=== PATIENT | female | born 1970 | race American Indian/Alaskan Native ===

== ENCOUNTER 2019-12-12 11:22 | Emergency (ER) | payer MEDICARE, OTHER ==
[2019-12-12 11:30] VITALS: BP 188/121
--- NOTE | 2019-12-12 11:56 | Event Note ---
ED Screening Note Date of service: 12/12/19 Time: 11:53 ED Screening Note: 49 y/o female comes in for right knee injury and pain. Fell out of a car 3 days ago. This initial assessment/diagnostic orders/clinical plan/treatment(s) is/are subject to change based on patients health status, clinical progression and re- assessment by fellow clinical providers in the ED. Further treatment and workup at subsequent clinical providers discretion. Patient/guardian urged not to elope from the ED as their condition may be serious if not clinically assessed and managed. Initial orders include:
--- NOTE | 2019-12-12 12:44 | XRay Report ---
RIGHT KNEE 3 VIEWS INDICATION / CLINICAL INFORMATION: injury to rt knee. COMPARISON: None available. FINDINGS: Mild degenerative change in the medial and patellofemoral compartments. No other significant skeletal abnormality Signer Name: Chris Figueroa MD FACR Signed: 12/12/2019 12:39 PM Workstation Name: [id number]
--- NOTE | 2019-12-12 12:58 | Emergency Department Report ---
ED Lower Extremity HPI - General Chief Complaint: Extremity Injury, Lower Stated Complaint: KNEE PAIN Time Seen by Provider: 12/12/19 12:47 Source: patient Mode of arrival: Ambulatory Limitations: No Limitations - History of Present Illness Initial Comments: 49-year-old morbidly obese Afro-[place] female status slip and fall while trying to get into a vehicle 1 day ago. States worsening into the vehicle she lost her balance and fell forward causing her right knee to twist causing a popping and burning sensation. Leg did not strike the ground of any other hard surface at any point in time. She reports no pre-existing issues with her right knee. There is no numbness or tingling. No fever chills or sweats. No paresthesia. MD Complaint: knee injury - Related Data Previous Rx's Medication Instructions Recorded Last Taken Type HYDROcodone/APAP 5-325 [[place] 1 each PO Q6HR PRN #14 tablet 09/02/13 Unknown Rx 5/325 mg] metroNIDAZOLE [Flagyl] 500 mg PO BID #14 tablet 09/02/13 Unknown Rx Ketorolac [Toradol] 10 mg PO Q6H PRN #14 tablet 12/12/19 Unknown Rx Allergies Allergy/AdvReac Type Severity Reaction Status Date / Time No Known Allergies Allergy Verified 09/02/13 13:07 ED Review of Systems ROS: Stated complaint: KNEE PAIN Other details as noted in HPI Comment: All other systems reviewed and negative ED Past Medical Hx - Past Medical History Previous Medical History?: Yes Hx Hypertension: Yes Hx HIV: Yes Additional medical history: anemia - Surgical History Past Surgical History?: Yes Additional Surgical History: lap band, breast reduction - Social History Smoking Status: Unknown if ever smoked Substance Use Type: Alcohol, Marijuana - Medications Home Medications: Home Medications Medication Instructions Recorded Confirmed Last Taken Type HYDROcodone/APAP 5-325 [[place] 1 each PO Q6HR PRN #14 tablet 09/02/13 Unknown Rx 5/325 mg] metroNIDAZOLE [Flagyl] 500 mg PO BID #14 tablet 09/02/13 Unknown Rx Ketorolac [Toradol] 10 mg PO Q6H PRN #14 tablet 12/12/19 Unknown Rx ED Physical Exam - General Limitations: No Limitations General appearance: alert, in no apparent distress - Head Head exam: Present: atraumatic, normocephalic - Eye Eye exam: Present: normal appearance, PERRL, EOMI - ENT ENT exam: Present: mucous membranes moist - Neck Neck exam: Present: normal inspection - Respiratory Respiratory exam: Present: normal lung sounds bilaterally. Absent: respiratory distress - Cardiovascular Cardiovascular Exam: Present: regular rate, normal rhythm. Absent: systolic murmur, diastolic murmur, rubs, gallop - GI/Abdominal GI/Abdominal exam: Present: soft, normal bowel sounds - Extremities Exam Extremities exam: Present: normal inspection - Expanded Lower Extremity Exam Right Knee exam: Present: tenderness, swelling, effusion, pain w/ prona tion/supination, pain/laxity with valgus. Absent: laceration, ecchymosis, crepidus, dislocation, erythema Lower Leg exam: Present: normal inspection Ankle exam: Present: normal inspection Foot/Toe exam: Present: normal inspection Neuro vascular tendon exam: Present: no vascular compromise - Back Exam Back exam: Present: normal inspection - Neurological Exam Neurological exam: Present: alert, oriented X3 - Psychiatric Psychiatric exam: Present: normal affect, normal mood - Skin Skin exam: Present: warm, dry, intact, normal color. Absent: rash ED Course Vital Signs 12/12/19 11:27 Temperature 98.9 F Pulse Rate 114 H Respiratory 16 Rate Blood Pressure 188/121 [Left] O2 Sat by Pulse 98 Oximetry Critical care attestation.: If time is entered above; I have spent that time in minutes in the direct care of this critically ill patient, excluding procedure time. ED Disposition Clinical Impression: Internal derangement of knee Disposition: DC-01 TO HOME OR SELFCARE Is pt being admited?: No Does the pt Need Aspirin: No Condition: Stable Instructions: Knee Pain (ED), Knee Immobilizer (ED), Crutch Instructions (ED) Prescriptions: Ketorolac [Toradol] 10 mg PO Q6H PRN #14 tablet PRN Reason: Pain Referrals: JACI UREÑA MD [Staff Physician] - 3-5 Days [facility] [Provider Group] - 3-5 Days
[2019-12-12] MEDS ORDERED: HYDROcodone/ACETAMINOPHEN 5-325 MG TAB PO STA (13:13)
== END 2019-12-12 13:22 | disposition home or self-care (01) ==
LOC: ED 11:22
DX: M23.8X1 Other internal derangements of right knee (principal); I10 Essential (primary) hypertension; F12.10 Cannabis abuse, uncomplicated; Z21 Asymptomatic human immunodeficiency virus [HIV] infection status; Z79.899 Other long term (current) drug therapy
CPT/HCPCS: 99283

== ENCOUNTER 2020-03-02 19:16 | Emergency (ER) | payer MEDICARE ==
[2020-03-02 19:58] VITALS: BP 151/99
[2020-03-02] MEDS ORDERED: dexAMETHasone 20 MG/5 ML VIAL IM ONE (22:38)
[2020-03-02] MEDS ORDERED: KETOROLAC 30 MG/1 ML INJ IM ONE (22:38)
--- NOTE | 2020-03-02 23:25 | Emergency Department Report ---
ED Back Pain/Injury HPI - General Chief Complaint: Back Pain/Injury Stated Complaint: MIDDLE BACK PAIN Time Seen by Provider: 03/02/20 22:08 Source: patient Limitations: No Limitations - History of Present Illness Initial Comments: Patient 50-year-old -Malian female with a history of obesity, low back pain ,and osteoarthritis. Who presents for exacerbation of low back pain. Patient denies fall ,injury or trauma. Pain today described at 4/10 aching radiated to right lower extremity..'s of tingling and burning. There is no loss or decrease in bowel or bladder function. Patient remains amatory to baseline per patient. Patient states usual regimen is NSAIDs moist heat and rest. Current symptoms are exacerbated by bending moving and twisting. Symptoms are relieved by offloading and rest. MD Complaint: back pain Onset/Timin -: days(s) Similar Symptoms Previously: Yes Place: home Radiation: right leg Severity: moderate Severity scale (0 -10): 5 Quality: aching Consistency: constant Worsens With: movement Context: turning/twisting, bending Associated Symptoms: denies: weakness, difficulty urinating, incontinence, constipation - Related Data Previous Rx's Medication Instructions Recorded Last Taken Type HYDROcodone/APAP 5-325 [[place] 1 each PO Q6HR PRN #14 tablet 09/02/13 Unknown Rx 5/325 mg] metroNIDAZOLE [Flagyl] 500 mg PO BID #14 tablet 09/02/13 Unknown Rx Ketorolac [Toradol] 10 mg PO Q6H PRN #14 tablet 12/12/19 Unknown Rx Cyclobenzaprine [Flexeril] 10 mg PO TID PRN #30 tablet 03/02/20 Unknown Rx Diclofenac Sodium 50 mg PO Q8H PRN #30 tablet. 03/02/20 Unknown Rx predniSONE [Deltasone] 40 mg PO QDAY 5 Days #10 tab 03/02/20 Unknown Rx Allergies Allergy/AdvReac Type Severity Reaction Status Date / Time No Known Allergies Allergy Verified 09/02/13 13:07 ED Review of Systems ROS: Stated complaint: MIDDLE BACK PAIN Other details as noted in HPI Constitutional: denies: chills, fever Eyes: denies: eye pain, eye discharge, vision change ENT: denies: ear pain, throat pain Respiratory: denies: cough, shortness of breath, wheezing Cardiovascular: denies: chest pain, palpitations Endocrine: no symptoms reported Gastrointestinal: denies: abdominal pain, nausea, diarrhea Genitourinary: denies: urgency, dysuria, discharge Musculoskeletal: back pain, arthralgia, myalgia Skin: denies: rash, lesions Neurological: as per HPI Psychiatric: denies: anxiety, depression Hematological/Lymphatic: denies: easy bleeding, easy bruising ED Past Medical Hx - Past Medical History Previous Medical History?: Yes Hx Hypertension: Yes Hx HIV: Yes Additional medical history: anemia, Peripheral Neuropathy, Herniated discs. Chronic Back Pain. Chronic bilateral knee pain - Surgical History Past Surgical History?: Yes Additional Surgical History: lap band, breast reduction, Uterine Embolization, - Social History Smoking Status: Never Smoker Substance Use Type: None - Medications Home Medications: Home Medications Medication Instructions Recorded Confirmed Last Taken Type HYDROcodone/APAP 5-325 [[place] 1 each PO Q6HR PRN #14 tablet 09/02/13 Unknown Rx 5/325 mg] metroNIDAZOLE [Flagyl] 500 mg PO BID #14 tablet 09/02/13 Unknown Rx Ketorolac [Toradol] 10 mg PO Q6H PRN #14 tablet 12/12/19 Unknown Rx Cyclobenzaprine [Flexeril] 10 mg PO TID PRN #30 tablet 03/02/20 Unknown Rx Diclofenac Sodium 50 mg PO Q8H PRN #30 tablet. 03/02/20 Unknown Rx predniSONE [Deltasone] 40 mg PO QDAY 5 Days #10 tab 03/02/20 Unknown Rx ED Physical Exam - General Limitations: No Limitations General appearance: alert, in no apparent distress - Head Head exam: Present: atraumatic, normocephalic - Eye Eye exam: Present: normal appearance - ENT ENT exam: Present: mucous membranes moist - Neck Neck exam: Present: normal inspection, full ROM. Absent: tenderness - Respiratory Respiratory exam: Present: normal lung sounds bilaterally. Absent: respiratory distress, wheezes, stridor - Cardiovascular Cardiovascular Exam: Present: regular rate, normal rhythm, normal heart sounds. Absent: systolic murmur, diastolic murmur, rubs, gallop - GI/Abdominal GI/Abdominal exam: Present: soft, normal bowel sounds. Absent: tenderness - Extremities Exam Extremities exam: Present: normal inspection, full ROM, normal capillary refill. Absent: tenderness - Back Exam Back exam: Present: normal inspection, full ROM, muscle spasm, paraspinal tenderness. Absent: tenderness, CVA tenderness (R), CVA tenderness (L), vertebral tenderness, rash noted - Expanded Back Exam Expanded Back exam: Absent: saddle anesthesia Back exam: Positive Straight Leg Raise: Right - Neurological Exam Neurological exam: Present: alert, oriented X3, CN II-XII intact, normal gait, reflexes normal. Absent: motor sensory deficit - Expanded Neurological Exam Expanded Patient oriented to: Present: person, place, time Speech: Present: fluid speech Motor strength exam: RUE: 5, LUE: 5, RLE: 5, LLE: 5 DTR: ankle (R): 2+, ankle (L): 2+ Best Eye Response (Bath): (4) open spontaneously Best Motor Response (Sheri): (6) obeys commands Best Verbal Response ([place]ath): (5) oriented Sheri Total: 15 - Psychiatric Psychiatric exam: Present: normal affect, normal mood - Skin Skin exam: Present: warm, dry, intact, normal color. Absent: rash ED Course Vital Signs 03/02/20 19:55 Temperature 98.1 F Pulse Rate 84 Respiratory 18 Rate Blood Pressure 151/99 O2 Sat by Pulse 97 Oximetry ED Medical Decision Making - Medical Decision Making Symptoms improved to 07/28. Plan DC to home with prescription for NSAIDs analgesic balm muscle relaxants patient will use moist heat therapy as directed. Patient will follow-up with Ortho in 2 to 3 days. Patient verbalizes agreement and understanding with discharge plan . Patient currently amatory with steady gait in no acute distress ,patient DC'd home in stable condition at this time Critical care attestation.: If time is entered above; I have spent that time in minutes in the direct care of this critically ill patient, excluding procedure time. ED Disposition Clinical Impression: Repetitive strain injury of lower back Qualifiers: Encounter type: initial encounter Qualified Code(s): S39.012A - Strain of muscle, fascia and tendon of lower back, initial encounter; X50.3XXA - Overexertion from repetitive movements, initial encounter Disposition: DC-01 TO HOME OR SELFCARE Is pt being admited?: No Does the pt Need Aspirin: No Condition: Stable Instructions: Low Back Strain (ED), Core Strengthening Exercises (GEN) Prescriptions: predniSONE [Deltasone] 40 mg PO QDAY 5 Days #10 tab Diclofenac Sodium 50 mg PO Q8H PRN #30 tablet. PRN Reason: pain Cyclobenzaprine [Flexeril] 10 mg PO TID PRN #30 tablet PRN Reason: Muscle Spasm Referrals: BANDAR CHAUHAN MD [Primary Care Provider] - 3-5 Days Forms: Work/School Release Form(ED) Time of Disposition: 23:31
== END 2020-03-03 00:10 | disposition home or self-care (01) ==
LOC: ED 19:16
DX: S39.012A Strain of muscle, fascia and tendon of lower back, initial encounter (principal); E66.9 Obesity, unspecified; M19.90 Unspecified osteoarthritis, unspecified site; I10 Essential (primary) hypertension; D64.9 Anemia, unspecified; Z68.41 Body mass index [BMI] 40.0-44.9, adult; Z21 Asymptomatic human immunodeficiency virus [HIV] infection status; Z79.899 Other long term (current) drug therapy; Z98.890 Other specified postprocedural states; X58.XXXA Exposure to other specified factors, initial encounter; Y93.89 Activity, other specified; Y92.009 Unspecified place in unspecified non-institutional (private) residence as the place of occurrence of the external cause; Y99.8 Other external cause status
CPT/HCPCS: 96372; 99283; J1100; J1885

== ENCOUNTER 2020-03-22 11:51 | Emergency (ER) | payer MEDICARE ==
[2020-03-22 11:57] VITALS: BP 139/94
--- NOTE | 2020-03-22 12:42 | XRay Report ---
XR foot 3+V RT INDICATION / CLINICAL INFORMATION: Trauma, pain and swelling. COMPARISON: None available. FINDINGS: No acute fracture. Normal alignment. Joint spaces are preserved. No destructive osseous lesion or s uspicious periosteal reaction. Impression: 1.No acute fracture. Signer Name: Christian Hernandez MD Signed: 03/22/2020 12:37 PM Workstation Name: [id number]
[2020-03-22] MEDS ORDERED: HYDROcodone/ACETAMINOPHEN 5-325 MG TAB PO ONE (13:37)
[2020-03-22] MEDS ORDERED: KETOROLAC 30 MG/1 ML INJ IM ONE (13:37)
--- NOTE | 2020-03-22 13:45 | Emergency Department Report ---
ED General Adult HPI - General Chief complaint: Extremity Injury, Lower Stated complaint: RT FOOT SWOLLEN Time Seen by Provider: 03/22/20 13:34 Source: patient Mode of arrival: Wheelchair Limitations: No Limitations - History of Present Illness Initial comments: 50-year-old -Armenian female patient presents with complaints of sudden onset of right foot pain upon waking this morning. She denies any injury or history of gout. She rates her current pain as a 10/10 in severity and states it worsens with touching and ambulation. She has history of HIV and states she is compliant with her antiretroviral medications. She denies any fever/chill s/sweats, numbness/tingling/weakness in her foot, or inability to move her foot. She denies trying any [id number]-weauhfc medicine for her symptoms. - Related Data Previous Rx's Medication Instructions Recorded Last Taken Type HYDROcodone/APAP 5-325 [[place] 1 each PO Q6HR PRN #14 tablet 09/02/13 Unknown Rx 5/325 mg] metroNIDAZOLE [Flagyl] 500 mg PO BID #14 tablet 09/02/13 Unknown Rx Ketorolac [Toradol] 10 mg PO Q6H PRN #14 tablet 12/12/19 Unknown Rx Cyclobenzaprine [Flexeril] 10 mg PO TID PRN #30 tablet 03/02/20 Unknown Rx Diclofenac Sodium 50 mg PO Q8H PRN #30 tablet. 03/02/20 Unknown Rx predniSONE [Deltasone] 40 mg PO QDAY 5 Days #10 tab 03/02/20 Unknown Rx Acetaminophen/Codeine [Tylenol 1 tab PO Q6H PRN #10 tab 03/22/20 Unknown Rx /Codeine # 3 tab] Indomethacin 50 mg PO Q8H 7 Days #21 capsule 03/22/20 Unknown Rx Allergies Allergy/AdvReac Type Severity Reaction Status Date / Time No Known Allergies Allergy Verified 09/02/13 13:07 ED Review of Systems ROS: Stated complaint: RT FOOT SWOLLEN Other details as noted in HPI Constitutional: denies: chills, fever, malaise, weakness Respiratory: denies: shortness of breath Cardiovascular: denies: chest pain Endocrine: denies: excessive sweating Gastrointestinal: denies: abdominal pain, nausea Genitourinary: denies: urgency, dysuria, hematuria Musculoskeletal: joint swelling, arthralgia Skin: denies: rash, lesions, change in color Neurological: denies: headache, numbness, paresthesias Hematological/Lymphatic: denies: easy bruising, swollen glands ED Past Medical Hx - Past Medical History Previous Medical History?: Yes Hx Hypertension: Yes Hx HIV: Yes Additional medical history: anemia, Peripheral Neuropathy, Herniated discs. Chronic Back Pain. Chronic bilateral knee pain - Surgical History Past Surgical History?: Yes Additional Surgical History: lap band, breast reduction, Uterine Embolization, - Social History Smoking Status: Never Smoker Substance Use Type: None - Medications Home Medications: Home Medications Medication Instructions Recorded Confirmed Last Taken Type HYDROcodone/APAP 5-325 [[place] 1 each PO Q6HR PRN #14 tablet 09/02/13 Unknown Rx 5/325 mg] metroNIDAZOLE [Flagyl] 500 mg PO BID #14 tablet 09/02/13 Unknown Rx Ketorolac [Toradol] 10 mg PO Q6H PRN #14 tablet 12/12/19 Unknown Rx Cyclobenzaprine [Flexeril] 10 mg PO TID PRN #30 tablet 03/02/20 Unknown Rx Diclofenac Sodium 50 mg PO Q8H PRN #30 tablet. 03/02/20 Unknown Rx predniSONE [Deltasone] 40 mg PO QDAY 5 Days #10 tab 03/02/20 Unknown Rx Acetaminophen/Codeine [Tylenol 1 tab PO Q6H PRN #10 tab 03/22/20 Unknown Rx /Codeine # 3 tab] Indomethacin 50 mg PO Q8H 7 Days #21 capsule 03/22/20 Unknown Rx ED Physical Exam - General Limitations: No Limitations General appearance: alert, in no apparent distress, obese - Head Head exam: Present: atraumatic, normocephalic - Eye Eye exam: Present: normal appearance. Absent: scleral icterus - Neck Neck exam: Present: normal inspection - Respiratory Respiratory exam: Present: normal lung sounds bilaterally. Absent: respiratory distress - Cardiovascular Cardiovascular Exam: Present: regular rate, normal rhythm, normal heart sounds - Extremities Exam Extremities exam: Present: full ROM - Expanded Lower Extremity Exam Right Ankle exam: Present: full ROM, tenderness (Lateral). Absent: swelling Foot/Toe exam: Present: full ROM, tenderness, swelling (Mild with mild overlying redness and warmth to touch; no induration noted). Absent: abrasion, laceration, ecchymosis, deformity, dislocation, puncture wound Neuro vascular tendon exam: Absent: pulse deficit, motor deficit, sensory deficit, extremity cold to touch, pallor - Back Exam Back exam: Present: normal inspection - Neurological Exam Neurological exam: Present: alert, oriented X3 - Psychiatric Psychiatric exam: Present: normal affect, normal mood - Skin Skin exam: Present: warm, dry, intact. Absent: rash ED Course Vital Signs 03/22/20 03/22/20 03/22/20 11:56 13:51 13:52 Temperature Pulse Rate 101 H Respiratory 16 18 18 Rate Blood Pressure 139/94 O2 Sat by Pulse 94 Oximetry 03/22/20 14:43 Temperature 99.4 F Pulse Rate 87 Respiratory 16 Rate Blood Pressure O2 Sat by Pulse 96 Oximetry ED Medical Decision Making - Lab Data Result diagrams: 03/22/20 13:59 03/22/20 13:59 Lab Results 03/22/20 03/22/20 Range/Units 13:59 13:59 WBC 4.8 (4.5-11.0) K/mm3 RBC 3.11 L (3.65-5.03) M/mm3 Hgb 9.6 L (10.1-14.3) gm/dl Hct 28.2 L (30.3-42.9) % MCV 91 (79-97) fl MCH 31 (28-32) pg MCHC 34 (30-34) % RDW 13.6 (13.2-15.2) % Plt Count 264 (140-440) K/mm3 Lymph % (Auto) 38.5 H (13.4-35.0) % Grady % (Auto) 9.8 H (0.0-7.3) % Eos % (Auto) 0.7 (0.0-4.3) % Baso % (Auto) 0.1 (0.0-1.8) % Lymph # (Auto) 1.8 (1.2-5.4) K/mm3 Grady # (Auto) 0.5 (0.0-0.8) K/mm3 Eos # (Auto) 0.0 (0.0-0.4) K/mm3 Baso # (Auto) 0.0 (0.0-0.1) K/mm3 Seg Neutrophils % 50.9 (40.0-70.0) % Seg Neutrophils # 2.4 (1.8-7.7) K/mm3 Sodium 137 (137-145) mmol/L Potassium 3.3 L (3.6-5.0) mmol/L Chloride 104.5 (98-107) mmol/L Carbon Dioxide 25 (22-30) mmol/L Anion Gap 11 mmol/L BUN 12 (7-17) mg/dL Creatinine 0.8 (0.6-1.2) mg/dL Estimated GFR > 60 ml/min BUN/Creatinine Ratio 15 % Glucose 78 (65-100) mg/dL Uric Acid 13.4 H (3.5-7.6) mg/dL Calcium 9.0 (8.4-10.2) mg/dL - Radiology Data Radiology results: report reviewed XR foot 3+V RT INDICATION / CLINICAL INFORMATION: Trauma, pain and swelling. COMPARISON: None available. FINDINGS: No acute fracture. Normal alignment. Joint spaces are preserved. No destructive osseous lesion or suspicious periosteal reaction. Impression: 1.No acute fracture. - Medical Decision Making 50-year-old -Armenian female patient presents with complaints of sudden onset of right foot pain upon waking this morning. She denies any injury or history of gout. She rates her current pain as a 10/10 in severity and states it worsens with touching and ambulation. She has history of HIV and states she is compliant with her antiretroviral medications. She denies any fever/chills/sweats, numbness/tingling/weakness in her foot, or inability to move her foot. She denies trying any wjrr-vtp-apjnvic medicine for her symptoms. Erythema and swelling with warmth noted to right foot on exam. CBC is normal. X-ray is negative for acute abnormality. Uric acid is elevated at 13.4. Exam and uric acid level is consistent with gouty arthritis. Patient given Toradol here in ED and will discharge home with indomethacin. Patient to follow-up with primary care within 3 to 5 days. Her vitals are normal, she is well-appearing, and she is stable for discharge home. Strict return precautions were discussed in detail with patient who verbalizes understanding. Critical care attestation.: If time is entered above; I have spent that time in minutes in the direct care of this critically ill patient, excluding procedure time. ED Disposition Clinical Impression: Acute gout of right foot Qualifiers: Gout etiology: idiopathic Qualified Code(s): M10.071 - Idiopathic gout, right ankle and foot Disposition: - TO HOME OR SELFCARE Is pt being admited?: No Condition: Stable Instructions: Acute Gouty Arthritis (ED) Prescriptions: Indomethacin 50 mg PO Q8H 7 Days #21 capsule Acetaminophen/Codeine [Tylenol /Codeine # 3 tab] 1 tab PO Q6H PRN #10 tab PRN Reason: Pain , Severe (7-10) Referrals: BANDAR CHAUHAN MD [Primary Care Provider] - 3-5 Days
[2020-03-22 14:27] LABS: Basophils % (Auto) 0.1 % (0.0-1.8); Eosinophils % (Auto) 0.7 % (0.0-4.3); Hematocrit 28.2 % (30.3-42.9); Hemoglobin 9.6 gm/dl (10.1-14.3); Lymphocytes # (Auto) 1.8 K/mm3 (1.2-5.4); Lymphocytes % (Auto) 38.5 % (13.4-35.0); Mean Corpuscular HGB Conc 34 % (30-34); Mean Corpuscular Volume 91 fl (79-97); Monocytes # (Auto) 0.5 K/mm3 (0.0-0.8); Monocytes % (Auto) 9.8 % (0.0-7.3); Platelet Count 264 K/mm3 (140-440); Red Blood Count 3.11 M/mm3 (3.65-5.03); Red Cell Distribution Width 13.6 % (13.2-15.2)
[2020-03-22 14:58] LABS: BUN/Creatinine Ratio 15; Blood Urea Nitrogen 12 mg/dL (7-17); Hemolysis Index 5; Uric Acid 13.4 mg/dL (3.5-7.6)
[2020-03-22] MEDS ORDERED: DEXAMETHASONE 4 MG TAB PO ONE (15:18)
== END 2020-03-22 15:49 | disposition home or self-care (01) ==
LOC: ED 11:51
DX: M10.9 Gout, unspecified (principal)
CPT/HCPCS: 36415; 73630; 80048; 84550; 85025; 96372; 99283; J1885; J8540

== ENCOUNTER 2020-05-11 14:14 | Observation (INO) | payer MEDICARE, OTHER ==
--- NOTE | 2020-05-11 14:41 | Event Note ---
ED Screening Note Date of service: 05/11/20 Time: 14:41 ED Screening Note: Patient complains of painful urination, hematuria, urinary frequency, and bilateral back pain x1 week History of HIV This initial assessment/diagnostic orders/clinical plan/treatment(s) is/are subject to change based on patients health status, clinical progression and re- assessment by fellow clinical providers in the ED. Further treatment and workup at subsequent clinical providers discretion. Patient/guardian urged not to elope from the ED as their condition may be serious if not clinically assessed and managed. Initial orders include: Labs
[2020-05-11 15:35] LABS: Basophils % (Auto) 0.2 % (0.0-1.8); Eosinophils # (Auto) 0.1 K/mm3 (0.0-0.4); Eosinophils % (Auto) 1.5 % (0.0-4.3); Hematocrit 30.2 % (30.3-42.9); Hemoglobin 10.3 gm/dl (10.1-14.3); Lymphocytes # (Auto) 2.2 K/mm3 (1.2-5.4); Lymphocytes % (Auto) 32.9 % (13.4-35.0); Mean Corpuscular HGB Conc 34 % (30-34); Mean Corpuscular Volume 90 fl (79-97); Monocytes # (Auto) 0.7 K/mm3 (0.0-0.8); Monocytes % (Auto) 9.8 % (0.0-7.3); Platelet Count 327 K/mm3 (140-440); Red Blood Count 3.35 M/mm3 (3.65-5.03); Red Cell Distribution Width 14.4 % (13.2-15.2)
[2020-05-11 15:52] LABS: Albumin 3.4 g/dL (3.9-5); Calcium 9.5 mg/dL (8.4-10.2)
[2020-05-11 19:09] LABS: Bacteria,Urine 2+ /HPF (Negative); Bilirubin,Urine NEG (Negative); Blood,Urine NEG (Negative); Color,Urine Yellow (Yellow); Hyaline Casts,Urine 5 /LPF; Mucus,Urine FEW /HPF; Urobilinogen,Urine < 2.0 mg/dL (<2.0)
--- NOTE | 2020-05-11 19:09 | Emergency Department Report ---
ED Abdominal Pain HPI - General Chief Complaint: Urogenital-Female Stated Complaint: BLOOD IN URINE/BACK PAIN Time Seen by Provider: 05/11/20 14:40 Source: patient Mode of arrival: Ambulatory Limitations: No Limitations - History of Present Illness Initial Comments: 50-year-old female General aches. Ports no fever, chills, sweats, no chest pain no palpitation, no nausea, no vomiting past medical history of anemia, hypertension, HIV presents emergency department complaining of bloody urine flank pain and dysuria MD Complaint: flank pain -: Gradual Location: suprapubic, L flank Radiation: L flank Migration to: suprapubic, L flank Severity: mild, moderate Severity scale (0 -10): 6 Quality: aching, sharp, dull Consistency: constant Improves With: nothing Worsens With: nothing Associated Symptoms: denies: vomiting, diarrhea, hematemesis, hematochezia, hematuria, anorexia - Related Data Previous Rx's Medication Instructions Recorded Last Taken Type HYDROcodone/APAP 5-325 [[place] 1 each PO Q6HR PRN #14 tablet 09/02/13 Unknown Rx 5/325 mg] metroNIDAZOLE [Flagyl] 500 mg PO BID #14 tablet 09/02/13 Unknown Rx Ketorolac [Toradol] 10 mg PO Q6H PRN #14 tablet 12/12/19 Unknown Rx Cyclobenzaprine [Flexeril] 10 mg PO TID PRN #30 tablet 03/02/20 Unknown Rx Diclofenac Sodium 50 mg PO Q8H PRN #30 tablet. 03/02/20 Unknown Rx predniSONE [Deltasone] 40 mg PO QDAY 5 Days #10 tab 03/02/20 Unknown Rx Acetaminophen/Codeine [Tylenol 1 tab PO Q6H PRN #10 tab 03/22/20 Unknown Rx /Codeine # 3 tab] Indomethacin 50 mg PO Q8H 7 Days #21 capsule 03/22/20 Unknown Rx Allergies Allergy/AdvReac Type Severity Reaction Status Date / Time No Known Allergies Allergy Verified 09/02/13 13:07 ED Review of Systems ROS: Stated complaint: BLOOD IN URINE/BACK PAIN Other details as noted in HPI Comment: All other systems reviewed and negative ED Past Medical Hx - Past Medical History Previous Medical History?: Yes Hx Hypertension: Yes Hx HIV: Yes Additional medical history: anemia, Peripheral Neuropathy, Herniated discs. Chronic Back Pain. Chronic bilateral knee pain - Surgical History Past Surgical History?: Yes Additional Surgical History: lap band, breast reduction, Uterine Embolization, . gastric sleeve - Social History Smoking Status: Never Smoker Substance Use Type: None - Medications Home Medications: Home Medications Medication Instructions Recorded Confirmed Last Taken Type HYDROcodone/APAP 5-325 [[place] 1 each PO Q6HR PRN #14 tablet 09/02/13 Unknown Rx 5/325 mg] metroNIDAZOLE [Flagyl] 500 mg PO BID #14 tablet 09/02/13 Unknown Rx Ketorolac [Toradol] 10 mg PO Q6H PRN #14 tablet 12/12/19 Unknown Rx Cyclobenzaprine [Flexeril] 10 mg PO TID PRN #30 tablet 03/02/20 Unknown Rx Diclofenac Sodium 50 mg PO Q8H PRN #30 tablet. 03/02/20 Unknown Rx predniSONE [Deltasone] 40 mg PO QDAY 5 Days #10 tab 03/02/20 Unknown Rx Acetaminophen/Codeine [Tylenol 1 tab PO Q6H PRN #10 tab 03/22/20 Unknown Rx /Codeine # 3 tab] Indomethacin 50 mg PO Q8H 7 Days #21 capsule 03/22/20 Unknown Rx ED Physical Exam - General Limitations: No Limitations General appearance: alert, in no apparent distress - Head Head exam: Present: atraumatic, normocephalic - Eye Eye exam: Present: normal appearance, PERRL - ENT ENT exam: Present: normal exam, mucous membranes moist, TM's normal bilaterally - Neck Neck exam: Present: normal inspection, full ROM - Respiratory Respiratory exam: Present: normal lung sounds bilaterally. Absent: respiratory distress, wheezes, rales, chest wall tenderness, accessory muscle use - Cardiovascular Cardiovascular Exam: Present: regular rate, normal rhythm. Absent: systolic murmur, diastolic murmur, rubs, gallop - GI/Abdominal GI/Abdominal exam: Present: soft, normal bowel sounds - Extremities Exam Extremities exam: Present: normal inspection, normal capillary refill - Back Exam Back exam: Present: normal inspection, full ROM, CVA tenderness (L). Absent: CVA tenderness (R) - Neurological Exam Neurological exam: Present: alert, oriented X3, CN II-XII intact - Psychiatric Psychiatric exam: Present: normal affect, normal mood - Skin Skin exam: Present: warm, dry, intact, normal color. Absent: rash ED Course Vital Signs 05/11/20 14:36 Temperature 99 F Pulse Rate 83 Respiratory 18 Rate Blood Pressure 136/89 [Right] O2 Sat by Pulse 99 Oximetry ED Medical Decision Making - Lab Data Result diagrams: 05/11/20 15:18 05/11/20 15:18 Lab Results 05/11/20 05/11/20 05/11/20 Range/Units 15:18 15:18 18:03 WBC 6.7 (4.5-11.0) K/mm3 RBC 3.35 L (3.65-5.03) M/mm3 Hgb 10.3 (10.1-14.3) gm/dl Hct 30.2 L (30.3-42.9) % MCV 90 (79-97) fl MCH 31 (28-32) pg MCHC 34 (30-34) % RDW 14.4 (13.2-15.2) % Plt Count 327 (140-440) K/mm3 Lymph % (Auto) 32.9 (13.4-35.0) % Gaines % (Auto) 9.8 H (0.0-7.3) % Eos % (Auto) 1.5 (0.0-4.3) % Baso % (Auto) 0.2 (0.0-1.8) % Lymph # (Auto) 2.2 (1.2-5.4) K/mm3 Gaines # (Auto) 0.7 (0.0-0.8) K/mm3 Eos # (Auto) 0.1 (0.0-0.4) K/mm3 Baso # (Auto) 0.0 (0.0-0.1) K/mm3 Seg Neutrophils % 55.6 (40.0-70.0) % Seg Neutrophils # 3.7 (1.8-7.7) K/mm3 Sodium 130 L (137-145) mmol/L Potassium 4.3 (3.6-5.0) mmol/L Chloride 104.9 (98-107) mmol/L Carbon Dioxide 14 L (22-30) mmol/L Anion Gap 15 mmol/L BUN 49 H (7-17) mg/dL Creatinine 2.2 H (0.6-1.2) mg/dL Estimated GFR 29 ml/min BUN/Creatinine Ratio 22 % Glucose 81 (65-100) mg/dL Calcium 9.5 (8.4-10.2) mg/dL Total Bilirubin 0.40 (0.1-1.2) mg/dL AST 23 (5-40) units/L ALT 18 (7-56) units/L Alkaline Phosphatase 60 (35-129) units/L Total Protein 13.2 H (6.3-8.2) g/dL Albumin 3.4 L (3.9-5) g/dL Albumin/Globulin Ratio 0.3 % Urine Color Yellow (Yellow) Urine Turbidity Slightly-cloudy (Clear) Urine pH 5.0 (5.0-7.0) Ur Specific [place] 1.012 (1.003-1.030) Urine Protein 30 mg/dl (Negative) mg/dL Urine Glucose (UA) Neg (Negative) mg/dL Urine Ketones Neg (Negative) mg/dL Urine Blood Neg (Negative) Urine Nitrite Neg (Negative) Urine Bilirubin Neg (Negative) Urine Urobilinogen < 2.0 (<2.0) mg/dL Ur Leukocyte Esterase Lg (Negative) Urine WBC (Auto) 28.0 H (0.0-6.0) /HPF Urine RBC (Auto) 14.0 (0.0-6.0) /HPF U Epithel Cells (Auto) 7.0 (0-13.0) /HPF Urine Bacteria (Auto) 2+ (Negative) /HPF Hyaline Casts 5 /LPF Urine Mucus Few /HPF Urine Yeast (Budding) 1+ /HPF - Radiology Data Radiology results: [place] [address] Cat Scan Report Signed Patient: MICHAEL KHAN MR #: [id number] : 1970 Acct:[id number] Age/Sex: 50 / F ADM Date: 05/11/20 Loc: ED Attending Dr: Ordering Physician: SANDEEP DACOSTA Date of Service: 05/11/20 Procedure(s): CT abdomen pelvis wo con Accession Number(s): [id number] cc: SANDEEP DACOSTA CT ABDOMEN AND PELVIS WITHOUT CONTRAST HISTORY: Left flank pain COMPARISON: None TECHNIQUE: Routine abdominal and pelvic CT exam performed without contrast. Lack of intravenous contrast limits evaluation of the vascular and solid organs.. All CT scans at this location are p erformed using CT dose reduction for ALARA by means of automated exposure control. FINDINGS: CT ABDOMEN: Lung Bases: No significant abnormality. Liver: No significant abnormality. Biliary: No significant abnormality. Spleen: No significant abnormality. Unenlarged. Pancreas: No significant abnormality. Adrenals: No significant abnormality. Kidneys: No stones, pelvocaliectasis, ureterectasis. No perinephric or periureteral stranding. Lymphatics: No lymphadenopathy. Vasculature: Atherosclerotic but nonaneurysmal abdominal aorta. Bowel/Peritoneum: Postsurgical changes in the stomach from what appears to be previous gastric partitioning. No bowel obstruction, free air, or portal venous gas. Appendix not visualized. No pericecal inflammation. Mild sigmoid diverticulosis without diverticulitis CT PELVIC: : There is a small 1.5 cm calcified uterine fibroid. Lymphatics: No lymphadenopathy. Osseous Structures: No aggressive appearing osseous lesions. Additional Findings: None IMPRESSION: 1. No acute findings. 2. Sigmoid diverticulosis without diverticulitis. 3. Small uterine fibroid noted. Signer Name: Robbin Marlow MD Signed: 05/11/2020 7:34 PM Workstation Name: [id number] Transcribed By: RODRIGUEZ Dictated By: Robbin Marlow MD Electronically Authenticated By: Robbin Marlow MD Signed Date/Time: 05/11/201933 DD/ 31 TD/TT: - Medical Decision Making 50-year-old female have hypertension and HIV and anemia presents emergency department with flank pain experiencing some dysuria labs support a urinary tract infection but also a newly evolving renal insufficiency. Plan is to admit the patient for fluids hydration antibiotics and an attempt to reverse the acute kidney injury. Critical care attestation.: If time is entered above; I have spent that time in minutes in the direct care of this critically ill patient, excluding procedure time. ED Disposition Clinical Impression: Renal insufficiency Disposition: OP ADMIT IP TO THIS HOSP Is pt being admited?: Yes Does the pt Need Aspirin: No Condition: Stable
--- NOTE | 2020-05-11 19:39 | Cat Scan Report ---
CT ABDOMEN AND PELVIS WITHOUT CONTRAST HISTORY: Left flank pain COMPARISON: None TECHNIQUE: Routine abdominal and pelvic CT exam performed without contrast. Lack of intravenous cont rast limits evaluation of the vascular and solid organs.. All CT scans at this location are performed using CT dose reduction for ALARA by means of automated exposure control. FINDINGS: CT ABDOMEN: Lung Bases: No significant abnormality. Liver: No significant abnormality. Biliary: No significant abnormality. Spleen: No significant abnormality. Unenlarged. Pancreas: No significant abnormality. Adrenals: No significant abnormality. Kidneys: No stones, pelvocaliectasis, ureterectasis. No perinephric or periureteral stranding. Lymphatics: No lymphadenopathy. Vasculature: Atherosclerotic but nonaneurysmal abdominal aorta. Bowel/Peritoneum: Postsurgical changes in the stomach from what appears to be previous gastric partit ioning. No bowel obstruction, free air, or portal venous gas. Appendix not visualized. No pericecal i nflammation. Mild sigmoid diverticulosis without diverticulitis CT PELVIC: : There is a small 1.5 cm calcified uterine fibroid. Lymphatics: No lymphadenopathy. Osseous Structures: No aggressive appearing osseous lesions. Additional Findings: None IMPRESSION: 1. No acute findings. 2. Sigmoid diverticulosis without diverticulitis. 3. Small uterine fibroid noted. Signer Name: Robbin Marlow MD Signed: 05/11/2020 7:34 PM Workstation Name: [id number]
[2020-05-11] MEDS ORDERED: LIDOCAINE-MPF (1%) 10 MG/1 ML VIAL 5 ML INFILTRATI ONE ×2 (22:06→22:43)
[2020-05-11] MEDS ORDERED: SODIUM CHLORIDE 0.9% 1000 ML 1,000 ML IV ONE (22:06)
[2020-05-11] MEDS ORDERED: ACETAMINOPHEN 325 MG TAB PO PRN (22:21)
[2020-05-11] MEDS ORDERED: MAGNESIUM HYDROXIDE (MOM) ORAL LIQD UDC PO PRN (22:21)
--- NOTE | 2020-05-11 22:29 | History and Physical Report ---
History of Present Illness Date of examination: 05/11/20 Date of admission: 05/11/2020 Chief complaint: General Body aches Dysuria History of present illness: 50-year-old -[place]is[place] female with known history of hypertension and HIV with CD4 count of 214 this month presenting to the emergency room today complaining of generalized body aches and dysuria. She denies any fever or chills, no nausea vomiting, no chest pain or shortness of breath, no headache or dizziness, no diarrhea, no bright red blood per rectum. She also indicates she has occasionally had some hematuria. She denies any flank pain. Patient denies any recent travel and no sick contacts and she denies any contact with anyone with COVID-19. Pain is said to be more on her lower back. She follows up at [facility]. on [facility] for her HIV. She also indicates that she has been compliant with her medications. Work-up in the emergency room today reveals a UTI on the urinalysis. CT scan of the abdomen/pelvis reveals: 1. No acute findings. 2. Sigmoid diverticulosis without diverticulitis. 3. Small uterine fibroid noted. Chemistry reveals hyponatremia. She also had elevated BUN and creatinine. Patient has denied having any renal insufficiency. However she indicates that she had gout on the foot earlier this month and was started on indomethacin. Patient has been started on IV fluid, analgesic medication and empiric IV antibiotics for the UTI. Past History Past Medical History: hypertension, other (HIV with CD4 count of 214 in 04/2020.) Past Surgical History: , Other (Gastric sleeve,peripheral neuropathy,chronic back pain,uterine embolization.) Social history: no significant social history Family history: other (Mother has Lupus,Father had heart disease and hypertension.) Medications and Allergies Allergies Allergy/AdvReac Type Severity Reaction Status Date / Time No Known Allergies Allergy Verified 09/02/13 13:07 Home Medications Medication Instructions Recorded Confirmed Last Taken Type HYDROcodone/APAP 5-325 [[place] 1 each PO Q6HR PRN #14 tablet 09/02/13 Unknown Rx 5/325 mg] metroNIDAZOLE [Flagyl] 500 mg PO BID #14 tablet 09/02/13 Unknown Rx Ketorolac [Toradol] 10 mg PO Q6H PRN #14 tablet 12/12/19 Unknown Rx Cyclobenzaprine [Flexeril] 10 mg PO TID PRN #30 tablet 03/02/20 Unknown Rx Diclofenac Sodium 50 mg PO Q8H PRN #30 tablet. 03/02/20 Unknown Rx predniSONE [Deltasone] 40 mg PO QDAY 5 Days #10 tab 03/02/20 Unknown Rx Acetaminophen/Codeine [Tylenol 1 tab PO Q6H PRN #10 tab 03/22/20 Unknown Rx /Codeine # 3 tab] Indomethacin 50 mg PO Q8H 7 Days #21 capsule 03/22/20 Unknown Rx Active Meds: Active Medications Acetaminophen (Tylenol) 650 mg PO Q4H PRN PRN Reason: Pain MILD(1-3)/Fever >100.5/LIAO Heparin Sodium (Porcine) (Heparin) 5,000 unit SUB-Q Q8HR CINDY Sodium Chloride (Nacl 0.9% 1000 Ml) 1,000 mls @ 999 mls/hr IV BOLUS ONE Stop: 05/11/20 23:06 Sodium Chloride (Nacl 0.9% 1000 Ml) 1,000 mls @ 125 mls/hr IV DIRECT CINDY Magnesium Hydroxide (Milk Of Magnesia) 30 ml PO Q4H PRN PRN Reason: Constipation Morphine Sulfate (Morphine) 2 mg IV Q4H PRN PRN Reason: Pain, Moderate (4-6) Ondansetron HCl (Zofran) 4 mg IV Q8H PRN PRN Reason: Nausea And Vomiting Sodium Chloride (Sodium Chloride Flush Syringe 10 Ml) 10 ml IV BID CINDY Sodium Chloride (Sodium Chloride Flush Syringe 10 Ml) 10 ml IV PRN PRN PRN Reason: LINE FLUSH Review of Systems Constitutional: no fever, no chills Ears, nose, mouth and throat: no nasal congestion, no sore throat Cardiovascular: no chest pain, no palpitations Respiratory: no cough, no shortness of breath Gastrointestinal: no abdominal pain, no nausea, no vomiting, no diarrhea Genitourinary Female: dysuria, hematuria, no flank pain, no menorrhagia Musculoskeletal: low back pain, no neck pain Integumentary: no rash, no pruritis Neurological: no headaches, no confusion Psychiatric: no anxiety, no depression Exam - Constitutional Vitals: Temp Pulse Resp BP Pulse Ox 99 F 83 18 136/89 99 05/11/20 14:36 05/11/20 14:36 05/11/20 14:36 05/11/20 14:36 05/11/20 14:36 General appearance: Present: no acute distress, well-nourished, obese - EENT Eyes: Present: PERRL, EOM intact. Absent: scleral icterus ENT: hearing intact, clear oral mucosa, dentition normal - Neck Neck: Present: supple, normal ROM - Respiratory Respiratory effort: normal Respiratory: bilateral: CTA - Cardiovascular Rhythm: regular Heart Sounds: Present: S1 & S2. Absent: gallop, systolic murmur, diastolic murmur, rub - Extremities Extremities: no ischemia, pulses intact, pulses symmetrical, No edema, Full ROM Peripheral Pulses: within normal limits - Abdominal General gastrointestinal: Present: soft, non-tender, non-distended, normal bowel sounds. Absent: mass - Integumentary Integumentary: Present: clear, warm, dry. Absent: rash - Musculoskeletal Musculoskeletal: strength equal bilaterally - Psychiatric Psychiatric: appropriate mood/affect, intact judgment & insight, memory intact, cooperative - Neurologic Neurologic: CNII-XII intact, no focal deficits, moves all extremities Results - Labs CBC & Chem 7: 05/11/20 15:18 05/11/20 15:18 Labs: Abnormal lab results 05/11/20 05/11/20 05/11/20 Range/Units 15:18 15:18 18:03 RBC 3.35 L (3.65-5.03) M/mm3 Hct 30.2 L (30.3-42.9) % [place] % (Auto) 9.8 H (0.0-7.3) % Sodium 130 L (137-145) mmol/L Carbon Dioxide 14 L (22-30) mmol/L BUN 49 H (7-17) mg/dL Creatinine 2.2 H (0.6-1.2) mg/dL Total Protein 13.2 H (6.3-8.2) g/dL Albumin 3.4 L (3.9-5) g/dL Urine WBC (Auto) 28.0 H (0.0-6.0) /HPF Assessment and Plan - Patient Problems (1) JANEY (acute kidney injury) Current Visit: Yes Status: Acute Plan to address problem: Etiology is unclear. However we will review patient's recent medications especially NSAIDs. We will schedule for renal ultrasound. We will place patient on IV fluid normal saline. Will also place a consult to nephrology for evaluation and recommendation (2) UTI (urinary tract infection) Current Visit: Yes Status: Acute Plan to address problem: Patient placed on empiric IV antibiotics. We await urine culture results. (3) HIV (human immunodeficiency virus infection) Current Visit: Yes Status: Acute Plan to address problem: Patient has been following up with a primary care physician. CD4 counts done this earlier month was 214. (4) Hypertension Current Visit: Yes Status: Acute Plan to address problem: We will resume routine home medications and monitor vital signs closely. (5) Hyponatremia Current Visit: Yes Status: Acute Plan to address problem: We will continue on IV fluid normal saline and monitor chemistry. (6) DVT prophylaxis Current Visit: Yes Status: Acute Plan to address problem: Patient placed on subcutaneous heparin. (7) Full code status Current Visit: Yes Status: Acute
[2020-05-11] MEDS ORDERED: SODIUM CHLORIDE 0.9% 1000 ML 1,000 ML IV SCH (22:30)
[2020-05-11] MEDS ORDERED: cefTRIAXone/NS 1 GM/50 ML 1 GM/50 ML BAG IV ONE ×2 (22:46→22:50)
[2020-05-11] MEDS ORDERED: SODIUM CHLORIDE 0.9% 1000 ML 1,000 ML ONE (22:50)
[2020-05-11] MEDS ORDERED: ONDANSETRON 4 MG/2 ML INJ ONE (23:10)
[2020-05-11] MEDS ORDERED: MORPHINE 2 MG/1 ML INJ ONE (23:10)
[2020-05-11] MEDS: ONDANSETRON 4 MG/2 ML INJ IV PRN (23:12)
[2020-05-11] MEDS: MORPHINE 2 MG/1 ML INJ IV PRN (23:12)
[2020-05-12] MEDS ORDERED: ALUM-MAG HYDROXIDE-SIMETHICONE 200-200-20MG/5ML ORAL LIQD 30 ML ONE (00:01)
[2020-05-12] MEDS ORDERED: MAGNESIUM HYDROXIDE (MOM) ORAL LIQD UDC ONE (00:04)
[2020-05-12] MEDS ORDERED: ALUM-MAG HYDROXIDE-SIMETHICONE 200-200-20MG/5ML ORAL LIQD 30 ML PO ONE (00:08)
[2020-05-12] MEDS: ONDANSETRON 4 MG/2 ML INJ IV PRN (05:37)
[2020-05-12] MEDS: MORPHINE 2 MG/1 ML INJ IV PRN (05:37)
[2020-05-12] MEDS: HEPARIN 5,000 UNIT/1 ML VIAL SUB-Q SCH ×2 (05:43→14:00)
[2020-05-12 08:40] LABS: Basophils # (Auto) 0.1 K/mm3 (0.0-0.1); Basophils % (Auto) 0.9 % (0.0-1.8); Eosinophils # (Auto) 0.1 K/mm3 (0.0-0.4); Eosinophils % (Auto) 2.4 % (0.0-4.3); Hematocrit 25.4 % (30.3-42.9); Hemoglobin 8.8 gm/dl (10.1-14.3); Lymphocytes # (Auto) 1.7 K/mm3 (1.2-5.4); Lymphocytes % (Auto) 29.3 % (13.4-35.0); Mean Corpuscular HGB Conc 35 % (30-34); Mean Corpuscular Volume 89 fl (79-97); Monocytes # (Auto) 0.5 K/mm3 (0.0-0.8); Platelet Count 286 K/mm3 (140-440); Red Blood Count 2.85 M/mm3 (3.65-5.03); Red Cell Distribution Width 14.8 % (13.2-15.2)
[2020-05-12 08:55] LABS: Calcium 9.3 mg/dL (8.4-10.2)
--- NOTE | 2020-05-12 08:57 | Consultation ---
History of Present Illness - Reason for Consult Consult date: 05/12/20 acute renal failure, hyponatremia - History of Present Illness This is a 50-year-old -[place] woman with known history of hypertension and HIV with CD4 count of 214 this month presenting with generalized body aches and dysuria. Noted to have creatinine of 2.2 on arrival, found to have potential UTI. She notes that she has never had a renal issue in the past per her knowledge and has never seen a kidney doctor. Notes feeling better this AM, no dyspnea, edema, abnormal urination noted. Past History Past Medical History: hypertension, other (HIV with CD4 count of 214 in 04/2020.) Past Surgical History: , Other (Gastric sleeve,peripheral neuropathy,chronic back pain,uterine embolization.) Social history: no significant social history Family history: other (Mother has Lupus,Father had heart disease and hypertension.) Medications and Allergies Allergies Allergy/AdvReac Type Severity Reaction Status Date / Time No Known Allergies Allergy Verified 09/02/13 13:07 Home Medications Medication Instructions Recorded Confirmed Last Taken Type HYDROcodone/APAP 5-325 [[place] 1 each PO Q6HR PRN #14 tablet 09/02/13 Unknown Rx 5/325 mg] metroNIDAZOLE [Flagyl] 500 mg PO BID #14 tablet 09/02/13 Unknown Rx Ketorolac [Toradol] 10 mg PO Q6H PRN #14 tablet 12/12/19 Unknown Rx Cyclobenzaprine [Flexeril] 10 mg PO TID PRN #30 tablet 03/02/20 Unknown Rx Diclofenac Sodium 50 mg PO Q8H PRN #30 tablet. 03/02/20 Unknown Rx predniSONE [Deltasone] 40 mg PO QDAY 5 Days #10 tab 03/02/20 Unknown Rx Acetaminophen/Codeine [Tylenol 1 tab PO Q6H PRN #10 tab 03/22/20 Unknown Rx /Codeine # 3 tab] Indomethacin 50 mg PO Q8H 7 Days #21 capsule 03/22/20 Unknown Rx Ciprofloxacin [Ciprofloxacin ORAL 500 mg PO DAILY #5 ml 05/12/20 Unknown Rx LIQ] Active Meds: Active Medications Acetaminophen (Tylenol) 650 mg PO Q4H PRN PRN Reason: Pain MILD(1-3)/Fever >100.5/LIAO Heparin Sodium (Porcine) (Heparin) 5,000 unit SUB-Q Q8HR CINDY Last Admin: 05/12/20 05:43 Dose: 5,000 unit Documented by: Sodium Chloride (Nacl 0.9% 1000 Ml) 1,000 mls @ 125 mls/hr IV DIRECT CINDY Ceftriaxone Sodium (Rocephin/Ns 1 Gm/50 Ml) 1 gm in 50 mls @ 100 mls/hr IV Q2 4HR CINDY; Protocol Magnesium Hydroxide (Milk Of Magnesia) 30 ml PO Q4H PRN PRN Reason: Constipation Morphine Sulfate (Morphine) 2 mg IV Q4H PRN PRN Reason: Pain, Moderate (4-6) Last Admin: 05/12/20 05:37 Dose: 2 mg Documented by: Ondansetron HCl (Zofran) 4 mg IV Q8H PRN PRN Reason: Nausea And Vomiting Last Admin: 05/12/20 05:37 Dose: 4 mg Documented by: Sodium Chloride (Sodium Chloride Flush Syringe 10 Ml) 10 ml IV BID CINDY Sodium Chloride (Sodium Chloride Flush Syringe 10 Ml) 10 ml IV PRN PRN PRN Reason: LINE FLUSH Review of Systems All systems: negative (as per HPI) Exam - Vital Signs Vital signs: Vital Signs Temp Pulse Resp BP Pulse Ox 99 F 83 18 136/89 99 05/11/20 14:36 05/11/20 14:36 05/11/20 14:36 05/11/20 14:36 05/11/20 14:36 - Physical Exam Narrative exam: Constitutional: no acute distress Head: NC/AT Neck: supple Lungs: clear to auscultation CV: RRR, no M/R/G Abdomen: soft, non-tender, bowel sounds present Back: nontender Extremities: no edema, pulses WNL Skin: intact Neuro: no focal deficits, alert and oriented x4 Results - Lab Results 05/12/20 07:42 05/12/20 07:42 Most recent lab results Calcium 9.3 mg/dL (8.4-10.2) 05/12/20 07:42 Assessment and Plan # Acute Kidney Injury: unclear baseline- may have NSAID use in past for gout, consideration of HIV related kidney disease, other CKD risk factors include HTN, obesity. May certainly have JANEY in setting of UTI, tubular injury, dehydration - IVF prn - reviewed renal ultrasound: echogenic kidneys noted - urinalysis reviewed, no hematuria so less likely HIVICK, send UP/C to quantify protein - check PTH to help with chronicity - avoid nephrotoxins - strict Is/Os - renally dose meds # Hyponatremia: likely related to JANEY/CKD, gentle IVF for now ok. Check urine osm, urine sodium although likely to be off with IVF # UTI: antibiotics per primary # HIV # Anemia
[2020-05-12] MEDS ORDERED: cefTRIAXone/NS 1 GM/50 ML 1 GM/50 ML BAG IV SCH (10:00)
--- NOTE | 2020-05-12 10:11 | Ultrasound Report ---
ULTRASOUND RENAL INDICATION: renal failure new onset. COMPARISON: No relevant prior imaging study available. FINDINGS: RIGHT KIDNEY: Size: 11.3 cm. Echogenicity: Increased. Cortical thickness: Normal. Stones: None. Hydronephrosis: None. Cyst or mass: There is a 2.1 cm cyst in the mid right kidney. LEFT KIDNEY: Size: 11.5 cm. Echogenicity: Increased. Cortical thickness: Normal. Stones: None. Hydronephrosis: None. Cyst or mass: None. Urinary Bladder: No significant abnormality. Free Fluid: None. Additional Findings: None. IMPRESSION 1. Bilateral increased renal cortical echogenicity suggesting medical renal disease. 2. Simple right renal cyst. Signer Name: Robbin Marlow MD Signed: 05/12/2020 10:06 AM Workstation Name: [id number]
--- NOTE | 2020-05-12 10:53 | Progress Note ---
Assessment and Plan - Patient Problems (1) JANEY (acute kidney injury) Current Visit: Yes Status: Acute (2) HIV (human immunodeficiency virus infection) Current Visit: Yes Status: Acute (3) Hypertension Current Visit: Yes Status: Acute (4) Hyponatremia Current Visit: Yes Status: Acute (5) Obesity hypoventilation syndrome Current Visit: Yes Status: Acute (6) DVT prophylaxis Current Visit: Yes Status: Acute History Interval history: 50 YO Female HD #2 with HIV Infection, UTI, JANEY Hospitalist Physical - Constitutional Vitals: Temp Pulse Resp BP Pulse Ox 98.6 F 84 20 104/51 97 05/12/20 07:02 05/12/20 07:02 05/12/20 07:02 05/12/20 07:02 05/12/20 07:02 General appearance: Present: no acute distress, well-nourished, obese Results - Labs CBC & Chem 7: 05/12/20 07:42 05/12/20 07:42 Labs: Laboratory Last Values WBC 5.8 K/mm3 (4.5-11.0) 05/12/20 07:42 RBC 2.85 M/mm3 (3.65-5.03) L 05/12/20 07:42 Hgb 8.8 gm/dl (10.1-14.3) L 05/12/20 07:42 Hct 25.4 % (30.3-42.9) L 05/12/20 07:42 MCV 89 fl (79-97) 05/12/20 07:42 MCH 31 pg (28-32) 05/12/20 07:42 MCHC 35 % (30-34) H 05/12/20 07:42 RDW 14.8 % (13.2-15.2) 05/12/20 07:42 Plt Count 286 K/mm3 (140-440) 05/12/20 07:42 Lymph % (Auto) 29.3 % (13.4-35.0) 05/12/20 07:42 [place] % (Auto) 8.0 % (0.0-7.3) H 05/12/20 07:42 Eos % (Auto) 2.4 % (0.0-4.3) 05/12/20 07:42 Baso % (Auto) 0.9 % (0.0-1.8) 05/12/20 07:42 Lymph # (Auto) 1.7 K/mm3 (1.2-5.4) 05/12/20 07:42 [place] # (Auto) 0.5 K/mm3 (0.0-0.8) 05/12/20 07:42 Eos # (Auto) 0.1 K/mm3 (0.0-0.4) 05/12/20 07:42 Baso # (Auto) 0.1 K/mm3 (0.0-0.1) 05/12/20 07:42 Seg Neutrophils % 59.4 % (40.0-70.0) 05/12/20 07:42 Seg Neutrophils # 3.4 K/mm3 (1.8-7.7) 05/12/20 07:42 Sodium 131 mmol/L (137-145) L 05/12/20 07:42 Potassium 4.2 mmol/L (3.6-5.0) 05/12/20 07:42 Chloride 107.3 mmol/L (98-107) H 05/12/20 07:42 Carbon Dioxide 14 mmol/L (22-30) L 05/12/20 07:42 Anion Gap 14 mmol/L 05/12/20 07:42 BUN 45 mg/dL (7-17) H 05/12/20 07:42 Creatinine 2.2 mg/dL (0.6-1.2) H 05/12/20 07:42 Estimated GFR 29 ml/min 05/12/20 07:42 BUN/Creatinine Ratio 20 % 05/12/20 07:42 Glucose 90 mg/dL (65-100) 05/12/20 07:42 Calcium 9.3 mg/dL (8.4-10.2) 05/12/20 07:42 Total Bilirubin 0.40 mg/dL (0.1-1.2) 05/11/20 15:18 AST 23 units/L (5-40) 05/11/20 15:18 ALT 18 units/L (7-56) 05/11/20 15:18 Alkaline Phosphatase 60 units/L (35-129) 05/11/20 15:18 Total Protein 13.2 g/dL (6.3-8.2) H 05/11/20 15:18 Albumin 3.4 g/dL (3.9-5) L 05/11/20 15:18 Albumin/Globulin Ratio 0.3 % 05/11/20 15:18 Urine Color Yellow (Yellow) 05/11/20 18:03 Urine Turbidity Slightly-cloudy (Clear) 05/11/20 18:03 Urine pH 5.0 (5.0-7.0) 05/11/20 18:03 Ur Specific [place] 1.012 (1.003-1.030) 05/11/20 18:03 Urine Protein 30 mg/dl mg/dL (Negative) 05/11/20 18:03 Urine Glucose (UA) Neg mg/dL (Negative) 05/11/20 18:03 Urine Ketones Neg mg/dL (Negative) 05/11/20 18:03 Urine Blood Neg (Negative) 05/11/20 18:03 Urine Nitrite Neg (Negative) 05/11/20 18:03 Urine Bilirubin Neg (Negative) 05/11/20 18:03 Urine Urobilinogen < 2.0 mg/dL (<2.0) 05/11/20 18:03 Ur Leukocyte Esterase Lg (Negative) 05/11/20 18:03 Urine WBC (Auto) 28.0 /HPF (0.0-6.0) H 05/11/20 18:03 Urine RBC (Auto) 14.0 /HPF (0.0-6.0) 05/11/20 18:03 U Epithel Cells (Auto) 7.0 /HPF (0-13.0) 05/11/20 18:03 Urine Bacteria (Auto) 2+ /HPF (Negative) 05/11/20 18:03 Hyaline Casts 5 /LPF 05/11/20 18:03 Urine Mucus Few /HPF 05/11/20 18:03 Urine Yeast (Budding) 1+ /HPF 05/11/20 18:03 Microbiology: Microbiology 05/11/20 18:03 Urine,Clean Catch Urine Culture - Preliminary NO GROWTH AFTER 24 HOURS Benitez/IV: IV Catheter Type [Left INT / Saline Lock Antecubital] Active Medications - Current Medications Current Medications: Generic Name Dose Route Start Last Admin Trade Name Freq PRN Reason Stop Dose Admin Acetaminophen 650 mg 05/11/20 22:21 Tylenol PO Q4H PRN Pain MILD(1-3)/Fever >100.5/LIAO Heparin Sodium (Porcine) 5,000 unit 05/12/20 06:00 05/12/20 05:43 Heparin SUB-Q 5,000 unit Q8HR CINDY Administration Sodium Chloride 1,000 mls @ 125 mls/hr 05/11/20 22:30 Nacl 0.9% 1000 Ml IV DIRECT CINDY Ceftriaxone Sodium 1 gm in 50 mls @ 100 mls/hr 05/12/20 10:00 Rocephin/Ns 1 Gm/50 Ml IV Q24HR [facility] Protocol Magnesium Hydroxide 30 ml 05/11/20 22:21 Milk Of Magnesia PO Q4H PRN Constipation Morphine Sulfate 2 mg 05/11/20 22:21 05/12/20 05:37 Morphine IV 2 mg Q4H PRN Administration Pain, Moderate (4-6) Ondansetron HCl 4 mg 05/11/20 22:21 05/12/20 05:37 Zofran IV 4 mg Q8H PRN Administration Nausea And Vomiting Sodium Chloride 10 ml 05/12/20 10:00 Sodium Chloride Flush Syringe 10 Ml IV BID CINDY Sodium Chloride 10 ml 05/11/20 22:21 Sodium Chloride Flush Syringe 10 Ml IV PRN PRN LINE FLUSH
[2020-05-12 12:22] VITALS: BP 142/63
--- NOTE | 2020-05-12 13:05 | Discharge Summary ---
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 Hospitalization Condition: Stable - Discharge Diagnoses (1) JANEY (acute kidney injury) Status: Acute (2) HIV (human immunodeficiency virus infection) Status: Acute (3) Hypertension Status: Acute (4) Hyponatremia Status: Acute (5) Obesity hypoventilation syndrome Status: Acute (6) DVT prophylaxis Status: Acute Exam - Constitutional Vitals: Temp Pulse Resp BP Pulse Ox 98.6 F 66 18 142/63 100 05/12/20 11:35 05/12/20 11:35 05/12/20 11:35 05/12/20 11:35 05/12/20 11:35 Plan Follow up with: PRIMARY CAREMD [Primary Care Provider] - 7 Days Prescriptions: Ciprofloxacin [Ciprofloxacin ORAL LIQ] 500 mg PO DAILY #5 ml
== END 2020-05-12 16:30 | disposition home or self-care (01) ==
LOC: ED 14:14 → 3A 22:21 → 3B-SURG 23:52
PROVIDERS: ADMIT Internal Medicine Geriatric Medicine; ATTEND Internal Medicine
DX: N17.9 Acute kidney failure, unspecified (principal); N39.0 Urinary tract infection, site not specified; N28.9 Disorder of kidney and ureter, unspecified; I10 Essential (primary) hypertension; E87.1 Hypo-osmolality and hyponatremia; D64.9 Anemia, unspecified; E66.2 Morbid (severe) obesity with alveolar hypoventilation; Z21 Asymptomatic human immunodeficiency virus [HIV] infection status; Z98.891 History of uterine scar from previous surgery; Z98.890 Other specified postprocedural states; Z68.38 Body mass index [BMI] 38.0-38.9, adult
CPT/HCPCS: 36415; 74176; 76770; 80048; 80053; 81001; 85025; 87086; 96365; 96366; 96372; 96375; 96376; 99284; G0378; J0696; J1644; J2270; J2405; J7030

== ENCOUNTER 2020-09-01 12:50 | Emergency (ER) | payer MEDICARE ==
[2020-09-01 12:55] VITALS: BP 156/96
--- NOTE | 2020-09-01 13:03 | Emergency Department Report ---
ED General Adult HPI - General Chief complaint: Sore Throat Stated complaint: THROAT PAIN Time Seen by Provider: 09/01/20 12:59 Source: patient Mode of arrival: Ambulatory Limitations: No Limitations - History of Present Illness Initial comments: 50-year-old -[place] female patient presents with complaints of sore throat x2 weeks. She rates her current pain as a 7/10 in severity and states it worsens with swallowing. Patient denies any cough, shortness of breath, chest pain, or fever/chills/sweats. No history of recurrent strep per patient. She also complains of itchy dry rash that was diagnosed as eczema to her abdomen and arms that she is currently using triamcinolone for. - Related Data Previous Rx's Medication Instructions Recorded Last Taken Type HYDROcodone/APAP 5-325 [[place] 1 each PO Q6HR PRN #14 tablet 09/02/13 Unknown Rx 5/325 mg] metroNIDAZOLE [Flagyl] 500 mg PO BID #14 tablet 09/02/13 Unknown Rx Ketorolac [Toradol] 10 mg PO Q6H PRN #14 tablet 12/12/19 Unknown Rx Cyclobenzaprine [Flexeril] 10 mg PO TID PRN #30 tablet 03/02/20 Unknown Rx Diclofenac Sodium 50 mg PO Q8H PRN #30 tablet. 03/02/20 Unknown Rx predniSONE [Deltasone] 40 mg PO QDAY 5 Days #10 tab 03/02/20 Unknown Rx Acetaminophen/Codeine [Tylenol 1 tab PO Q6H PRN #10 tab 03/22/20 Unknown Rx /Codeine # 3 tab] Indomethacin 50 mg PO Q8H 7 Days #21 capsule 03/22/20 Unknown Rx Ciprofloxacin [Ciprofloxacin ORAL 500 mg PO DAILY #5 ml 05/12/20 Unknown Rx LIQ] Amoxicillin [Trimox CAP] 500 mg PO BID 10 Days #20 capsule 09/01/20 Unknown Rx Ibuprofen [Motrin 800 MG tab] 800 mg PO Q8HR PRN #20 tablet 09/01/20 Unknown Rx Allergies Allergy/AdvReac Type Severity Reaction Status Date / Time No Known Allergies Allergy Verified 09/01/20 12:51 ED Review of Systems ROS: Stated complaint: THROAT PAIN Other details as noted in HPI Constitutional: denies: diaphoresis, fever, malaise, weakness ENT: throat pain. denies: dental pain Respiratory: denies: cough, shortness of breath Cardiovascular: denies: chest pain Gastrointestinal: denies: nausea Skin: rash. denies: change in color Neurological: denies: headache Hematological/Lymphatic: denies: swollen glands ED Past Medical Hx - Past Medical History Hx Hypertension: Yes Hx Congestive Heart Failure: No Hx Diabetes: No Hx Asthma: No Hx COPD: No Hx HIV: Yes Additional medical history: anemia, Peripheral Neuropathy, Herniated discs. Chronic Back Pain. Chronic bilateral knee pain - Surgical History Additional Surgical History: lap band, breast reduction, Uterine Embolization, . gastric sleeve - Social History Smoking Status: Never Smoker Substance Use Type: Alcohol - Medications Home Medications: Home Medications Medication Instructions Recorded Confirmed Last Taken Type HYDROcodone/APAP 5-325 [[place] 1 each PO Q6HR PRN #14 tablet 09/02/13 Unknown Rx 5/325 mg] metroNIDAZOLE [Flagyl] 500 mg PO BID #14 tablet 09/02/13 Unknown Rx Ketorolac [Toradol] 10 mg PO Q6H PRN #14 tablet 12/12/19 Unknown Rx Cyclobenzaprine [Flexeril] 10 mg PO TID PRN #30 tablet 03/02/20 Unknown Rx Diclofenac Sodium 50 mg PO Q8H PRN #30 tablet. 03/02/20 Unknown Rx predniSONE [Deltasone] 40 mg PO QDAY 5 Days #10 tab 03/02/20 Unknown Rx Acetaminophen/Codeine [Tylenol 1 tab PO Q6H PRN #10 tab 03/22/20 Unknown Rx /Codeine # 3 tab] Indomethacin 50 mg PO Q8H 7 Days #21 capsule 03/22/20 Unknown Rx Ciprofloxacin [Ciprofloxacin ORAL 500 mg PO DAILY #5 ml 05/12/20 Unknown Rx LIQ] Amoxicillin [Trimox CAP] 500 mg PO BID 10 Days #20 capsule 09/01/20 Unknown Rx Ibuprofen [Motrin 800 MG tab] 800 mg PO Q8HR PRN #20 tablet 09/01/20 Unknown Rx ED Physical Exam - General Limitations: No Limitations General appearance: alert, in no apparent distress - Head Head exam: Present: atraumatic, normocephalic - Expanded ENT Exam Expanded Mouth exam: Present: tongue normal. Absent: drooling, trismus, muffled voice Teeth exam: Absent: dental caries Throat exam: Positive: tonsillar erythema, tonsillomegaly, other (Uvula is midline). Negative: tonsillar exudate, R peritonsillar mass, L peritonsillar mass - Neck Neck exam: Present: tenderness (Tenderness to palpation of anterior cervical lymph nodes without significant lymphadenopathy noted), full ROM. Absent: meningismus - Respiratory Respiratory exam: Present: normal lung sounds bilaterally. Absent: respiratory distress - Cardiovascular Cardiovascular Exam: Present: regular rate - Neurological Exam Neurological exam: Present: alert, oriented X3, normal gait - Psychiatric Psychiatric exam: Present: normal affect, normal mood - Skin Skin exam: Present: warm, dry, intact, normal color, rash (Dry eczematic rash noted to left forearm and abdomen without erythema or drainage) ED Course Vital Signs 09/01/20 12:51 Temperature 98.6 F Pulse Rate 91 H Respiratory 20 Rate Blood Pressure 156/96 O2 Sat by Pulse 97 Oximetry ED Medical Decision Making - Medical Decision Making 50-year-old -[place] female patient presents with complaints of sore throat x2 weeks. She rates her current pain as a 7/10 in severity and states it worsens with swallowing. Patient denies any cough, shortness of breath, chest pain, or fever/chills/sweats. No history of recurrent strep per patient. She also complains of itchy dry rash that was diagnosed as eczema to her abdomen and arms that she is currently using triamcinolone for. We will treat for strep pharyngitis given bilateral tonsillomegaly and erythema on exam. Recommend follow-up with primary care in 3 to 5 days. Also recommend OTC Aquaphor for eczema rash. Strict return precautions were discussed in detail with patient who verbalized understanding. Her vitals are normal, she is well-appearing, she is stable for discharge home. Critical care attestation.: If time is entered above; I have spent that time in minutes in the direct care of this critically ill patient, excluding procedure time. ED Disposition Clinical Impression: Strep pharyngitis, Eczema Disposition: - TO HOME OR SELFCARE Is pt being admited?: No Condition: Stable Instructions: Strep Throat, Adult, Eczema Additional Instructions: Recommend [id number] Aquaphor ointment 3 times daily for eczema rash Prescriptions: Ibuprofen [Motrin 800 MG tab] 800 mg PO Q8HR PRN #20 tablet PRN Reason: pain Amoxicillin [Trimox CAP] 500 mg PO BID 10 Days #20 capsule Referrals: [facility] [Provider Group] - 3-5 Days
== END 2020-09-01 13:34 | disposition home or self-care (01) ==
LOC: ED 12:50
DX: J02.0 Streptococcal pharyngitis (principal); L30.9 Dermatitis, unspecified; Z79.899 Other long term (current) drug therapy; Z21 Asymptomatic human immunodeficiency virus [HIV] infection status; Z98.890 Other specified postprocedural states
CPT/HCPCS: 99282

== ENCOUNTER 2020-10-26 13:08 | Emergency (ER) | payer MEDICARE ==
[2020-10-26 13:48] VITALS: BP 165/93
--- NOTE | 2020-10-26 14:51 | Emergency Department Report ---
ED ENT HPI - General Chief complaint: Sore Throat Stated complaint: SORE THROAT Time Seen by Provider: 10/26/20 14:20 Source: patient Mode of arrival: Ambulatory Limitations: No Limitations - History of Present Illness Initial comments: 50-year-old female with a past medical history of HIV presents to the ER today with complaints of sore throat. Patient states that she been having sore throat about 3 weeks. She reports difficulty swallowing due to the sore throat and also some swollen lymph nodes. She states that when her symptoms first started she went to see Dr. Saucedo ENT, she states that he gave her a shot in the office as well as prescribed a prednisone and amoxicillin which she took all of but she states that did not work. She states that he also did a laryngoscope but did not see anything at the time. She denies any trismus, or drooling. She denies any fever or chills. She states that she suffers from allergies and has the usual nasal congestion runny nose and she takes allergy medications daily. Patient states that she last saw her infectious disease doctor in July at a time she had a high viral load, but her CD4 count was about 100. She states that she takes antivirals daily. Her follow-up appointment with infectious disease doctor is November 17. She does not have a follow-up visit with the ENT set up as yet. She denies any associated cough, fever, chills or any other symptoms at this time. MD complaint: sore throat -: week(s) (3) - Related Data Previous Rx's Medication Instructions Recorded Last Taken Type HYDROcodone/APAP 5-325 [[place] 1 each PO Q6HR PRN #14 tablet 09/02/13 Unknown Rx 5/325 mg] metroNIDAZOLE [Flagyl] 500 mg PO BID #14 tablet 09/02/13 Unknown Rx Ketorolac [Toradol] 10 mg PO Q6H PRN #14 tablet 12/12/19 Unknown Rx Cyclobenzaprine [Flexeril] 10 mg PO TID PRN #30 tablet 03/02/20 Unknown Rx Diclofenac Sodium 50 mg PO Q8H PRN #30 tablet. 03/02/20 Unknown Rx predniSONE [Deltasone] 40 mg PO QDAY 5 Days #10 tab 03/02/20 Unknown Rx Acetaminophen/Codeine [Tylenol 1 tab PO Q6H PRN #10 tab 03/22/20 Unknown Rx /Codeine # 3 tab] Indomethacin 50 mg PO Q8H 7 Days #21 capsule 03/22/20 Unknown Rx Ciprofloxacin [Ciprofloxacin ORAL 500 mg PO DAILY #5 ml 05/12/20 Unknown Rx LIQ] Amoxicillin [Trimox CAP] 500 mg PO BID 10 Days #20 capsule 09/01/20 Unknown Rx Ibuprofen [Motrin 800 MG tab] 800 mg PO Q8HR PRN #20 tablet 10/26/20 Unknown Rx Nystas/Diphen/Xyl Visc/Mylanta 10 ml PO TID PRN #120 ml 10/26/20 Unknown Rx [Magic Mouthwash] Allergies Allergy/AdvReac Type Severity Reaction Status Date / Time No Known Allergies Allergy Verified 10/26/20 13:48 ED Dental HPI - General Chief complaint: Sore Throat Stated complaint: SORE THROAT Time Seen by Provider: 10/26/20 14:20 Source: patient Mode of arrival: Ambulatory Limitations: No Limitations - Related Data Previous Rx's Medication Instructions Recorded Last Taken Type HYDROcodone/APAP 5-325 [[place] 1 each PO Q6HR PRN #14 tablet 09/02/13 Unknown Rx 5/325 mg] metroNIDAZOLE [Flagyl] 500 mg PO BID #14 tablet 09/02/13 Unknown Rx Ketorolac [Toradol] 10 mg PO Q6H PRN #14 tablet 12/12/19 Unknown Rx Cyclobenzaprine [Flexeril] 10 mg PO TID PRN #30 tablet 03/02/20 Unknown Rx Diclofenac Sodium 50 mg PO Q8H PRN #30 tablet. 03/02/20 Unknown Rx predniSONE [Deltasone] 40 mg PO QDAY 5 Days #10 tab 03/02/20 Unknown Rx Acetaminophen/Codeine [Tylenol 1 tab PO Q6H PRN #10 tab 03/22/20 Unknown Rx /Codeine # 3 tab] Indomethacin 50 mg PO Q8H 7 Days #21 capsule 03/22/20 Unknown Rx Ciprofloxacin [Ciprofloxacin ORAL 500 mg PO DAILY #5 ml 05/12/20 Unknown Rx LIQ] Amoxicillin [Trimox CAP] 500 mg PO BID 10 Days #20 capsule 09/01/20 Unknown Rx Ibuprofen [Motrin 800 MG tab] 800 mg PO Q8HR PRN #20 tablet 10/26/20 Unknown Rx Nystas/Diphen/Xyl Visc/Mylanta 10 ml PO TID PRN #120 ml 10/26/20 Unknown Rx [Magic Mouthwash] Allergies Allergy/AdvReac Type Severity Reaction Status Date / Time No Known Allergies Allergy Verified 10/26/20 13:48 ED Review of Systems ROS: Stated complaint: SORE THROAT Other details as noted in HPI Comment: All other systems reviewed and negative Constitutional: denies: chills, fever Eyes: denies: eye pain, eye discharge, vision change ENT: throat pain. denies: ear pain, dental pain, hearing loss, epistaxis, congestion Respiratory: denies: cough, orthopnea, shortness of breath, SOB with exertion, SOB at rest, stridor, wheezing Cardiovascular: denies: chest pain, palpitations, dyspnea on exertion, edema, syncope, paroxysmal nocturnal dyspnea Gastrointestinal: denies: abdominal pain, nausea, vomiting, diarrhea, constipation, hematemesis, hematochezia Genitourinary: denies: urgency, dysuria, frequency, hematuria, discharge, abnormal menses, dyspareunia Musculoskeletal: denies: back pain, joint swelling, arthralgia Skin: denies: rash, lesions Neurological: denies: headache, weakness, numbness, paresthesias, confusion, abnormal gait, vertigo Psychiatric: denies: anxiety, depression, auditory hallucinations, visual hallucinations, homicidal thoughts, suicidal thoughts Hematological/Lymphatic: denies: easy bleeding, easy bruising, swollen glands ED Past Medical Hx - Past Medical History Hx Hypertension: Yes Hx Congestive Heart Failure: No Hx Diabetes: No Hx Asthma: No Hx COPD: No Hx HIV: Yes Additional medical history: anemia, Peripheral Neuropathy, Herniated discs. Chronic Back Pain. Chronic bilateral knee pain - Surgical History Additional Surgical History: lap band, breast reduction, Uterine Embolization, . gastric sleeve - Social History Smoking Status: Never Smoker Substance Use Type: None - Medications Home Medications: Home Medications Medication Instructions Recorded Confirmed Last Taken Type HYDROcodone/APAP 5-325 [[place] 1 each PO Q6HR PRN #14 tablet 09/02/13 Unknown Rx 5/325 mg] metroNIDAZOLE [Flagyl] 500 mg PO BID #14 tablet 09/02/13 Unknown Rx Ketorolac [Toradol] 10 mg PO Q6H PRN #14 tablet 12/12/19 Unknown Rx Cyclobenzaprine [Flexeril] 10 mg PO TID PRN #30 tablet 03/02/20 Unknown Rx Diclofenac Sodium 50 mg PO Q8H PRN #30 tablet. 03/02/20 Unknown Rx predniSONE [Deltasone] 40 mg PO QDAY 5 Days #10 tab 03/02/20 Unknown Rx Acetaminophen/Codeine [Tylenol 1 tab PO Q6H PRN #10 tab 03/22/20 Unknown Rx /Codeine # 3 tab] Indomethacin 50 mg PO Q8H 7 Days #21 capsule 03/22/20 Unknown Rx Ciprofloxacin [Ciprofloxacin ORAL 500 mg PO DAILY #5 ml 05/12/20 Unknown Rx LIQ] Amoxicillin [Trimox CAP] 500 mg PO BID 10 Days #20 capsule 09/01/20 Unknown Rx Ibuprofen [Motrin 800 MG tab] 800 mg PO Q8HR PRN #20 tablet 10/26/20 Unknown Rx Nystas/Diphen/Xyl Visc/Mylanta 10 ml PO TID PRN #120 ml 10/26/20 Unknown Rx [Magic Mouthwash] ED Physical Exam - General Limitations: No Limitations General appearance: alert, in no apparent distress - Head Head exam: Present: atraumatic, normocephalic, normal inspection - Eye Eye exam: Present: normal appearance, PERRL, EOMI Pupils: Present: normal accommodation - ENT ENT exam: Present: mucous membranes moist - Expanded ENT Exam Expanded Mouth exam: Present: normal external inspection. Absent: drooling, trismus, muffled voice Teeth exam: Present: normal inspection Throat exam: Positive: tonsillar erythema. Negative: tonsillomegaly, tonsillar exudate, R peritonsillar mass, L peritonsillar mass - Neck Neck exam: Present: normal inspection, full ROM - Respiratory Respiratory exam: Present: normal lung sounds bilaterally. Absent: respiratory distress - Cardiovascular Cardiovascular Exam: Present: regular rate, normal rhythm, normal heart sounds - GI/Abdominal GI/Abdominal exam: Present: soft. Absent: distended, tenderness, guarding, rebound - Back Exam Back exam: Present: normal inspection - Neurological Exam Neurological exam: Present: alert, oriented X3, CN II-XII intact, normal gait - Psychiatric Psychiatric exam: Present: normal affect, normal mood - Skin Skin exam: Present: intact ED Course Vital Signs 10/26/20 10/26/20 13:46 16:22 Temperature 99 F Pulse Rate 87 Respiratory 18 18 Rate Blood Pressure 165/93 O2 Sat by Pulse 100 Oximetry ED Medical Decision Making - Radiology Data Radiology results: report reviewed Patient: MICHAEL THOMAS#: [id number] : 1970 Acct:[id number] Age/Sex: 50 / F ADM Date: 10/26/20 Loc: ED Attending Dr: Ordering Physician: CHARLENE MANE Date of Service: 10/26/20 Procedure(s): XR neck soft tissue Accession Number(s): [id number] cc: CHARLENE MANE Fluoro Time In Minutes: SOFT TISSUE NECK 2 VIEWS HISTORY: Sore throat for 3 weeks COMPARISON: None. IMPRESSION: The base of the tongue, epiglottis and prevertebral soft tissues are unremarkable. The osseous structures are intact. The upper airway appears widely patent. No abnormality is detected. Signer Name: Blair Murphy Jr, MD Signed: 10/26/2020 3:15 PM Workstation Name: [id number] Transcribed By: TTR Dictated By: BLAIR MURPHY JR, MD Electronically Authenticated By: BLAIR MURPHY JR, MD Signed Date/Time: 10/26/201514 DD/ 13 TD/TT: - Medical Decision Making 1700; rapid strep and mono negative. Soft tissue neck x-ray shows nothing acute. Patient currently resting comfortably, and is talking on her phone. She is not in any acute distress. She is well-appearing and appears well- hydrated and she is not toxic. She is neurologically intact with a normal gait in the ER. She has no drooling or trismus on exam. Her airway appears to be intact and there is no stridor. She is not in any respiratory distress. Her history, current condition and diagnostic findings physical exam does not suggest peritonsillar abscess, Linda's angina, epiglottitis, food bolus or any other significant abnormalities requiring further work-up or testing at this time. No apparent thrush was noted on exam either. Her Vital signs are stable. Discussed imaging and lab reports with patient. Exact cause of her symptoms at this time unclear, will give her prescription for Magic mouthwash to gargle and swallow as well as Motrin and recommend follow-up with her ENT and PCP for continued evaluation of her symptoms but she understands if her symptoms worsens in any way to return to the ER. Patient expressed understanding of instructions and agree with plan. Patient was stable at time of discharge. Critical care attestation.: If time is entered above; I have spent that time in minutes in the direct care of this critically ill patient, excluding procedure time. ED Disposition Clinical Impression: Pharyngitis Disposition: DC-01 TO HOME OR SELFCARE Is pt being admited?: No Does the pt Need Aspirin: No Condition: Stable Instructions: Pharyngitis, [id number] Additional Instructions: Take the motrin and magic mouthwash as prescribed. I recommend follow up with you ENT, Dr Saucedo this week or your PCP for further evaluation and treatment. Return to the ER if your symptoms changes or worsens in any way. Prescriptions: Nystas/Diphen/Xyl Visc/Mylanta [Magic Mouthwash] 10 ml PO TID PRN #120 ml PRN Reason: Sore Throat Ibuprofen [Motrin 800 MG tab] 800 mg PO Q8HR PRN #20 tablet PRN Reason: pain Referrals: MANUEL SAUCEDO MD [Staff Physician] - 3-5 Days Forms: Work/School Release Form(ED) Time of Disposition: 16:49
--- NOTE | 2020-10-26 15:20 | XRay Report ---
SOFT TISSUE NECK 2 VIEWS HISTORY: Sore throat for 3 weeks COMPARISON: None. IMPRESSION: The base of the tongue, epiglottis and prevertebral soft tissues are unremarkable. The os seous structures are intact. The upper airway appears widely patent. No abnormality is detected. Signer Name: Blair Murphy Jr, MD Signed: 10/26/2020 3:15 PM Workstation Name: [id number]
[2020-10-26] MEDS ORDERED: ACETAMINOPHEN 325 MG TAB PO ONE (16:19)
== END 2020-10-26 15:00 | disposition home or self-care (01) ==
LOC: ED 13:08
DX: J02.9 Acute pharyngitis, unspecified (principal); I10 Essential (primary) hypertension; Z98.890 Other specified postprocedural states; Z79.1 Long term (current) use of non-steroidal anti-inflammatories (NSAID); Z79.2 Long term (current) use of antibiotics; Z79.899 Other long term (current) drug therapy; Z21 Asymptomatic human immunodeficiency virus [HIV] infection status
CPT/HCPCS: 36415; 70360; 86308; 87116; 87430